=== PATIENT | male | born 1955 | race Caucasian/White ===

== ENCOUNTER 2023-09-10 11:25 | Emergency (ER) | payer OTHER ==
[~2023-09-10] VITALS: Ht 177.8 cm; Wt 99.3 kg
[2023-09-10 11:49] VITALS: BP_SYST 154; PULSE 71; RESP 18; TEMP 97.9; O2SAT 100
[2023-09-10] MEDS ORDERED: NABU-138 PO (13:25)
[2023-09-10 13:52] VITALS: BP_SYST 154; PULSE 71; RESP 18; TEMP 97.9; O2SAT 100
== END 2023-09-10 13:50 | disposition home or self-care (01) ==
LOC: SED 11:25
DX: S83.92XA Sprain of unspecified site of left knee, initial encounter (principal); Z79.899 Other long term (current) drug therapy; W17.89XA Other fall from one level to another, initial encounter; Y93.89 Activity, other specified; Y92.89 Other specified places as the place of occurrence of the external cause; Y99.8 Other external cause status
CPT/HCPCS: 73564; 99283